=== PATIENT | female | born 1960 | race Caucasian/White ===

== ENCOUNTER 2023-03-30 09:26 | Outpatient (CLI) | payer OTHER ==
[~2023-03-30 09:26] MED LIST: ACETAMINOPHEN PO
== END 2023-03-30 09:28 | disposition home or self-care (01) ==
LOC: SONOGRAMA 09:26
PROVIDERS: ATTEND Pathology Anatomic Pathology & Clinical Pathology
DX: D34 Benign neoplasm of thyroid gland (principal); E04.9 Nontoxic goiter, unspecified